=== PATIENT | female | born 1995 | race Caucasian/White ===

== ENCOUNTER 2019-05-28 13:20 | Outpatient (CLI) | payer MEDICAID ==
[2019-05-28 14:19] LABS: APPEARANCE,URINE CLEAR; BILIRUBIN,URINE NEGATIVE (NEGATIVE); COLOR,URINE YELLOW; GLUCOSE, URINE NEGATIVE (NEGATIVE); KETONES,URINE TRACE mg/dL (NEGATIVE); LEUKOCYTE ESTERASE,URINE NEGATIVE (NEGATIVE); NITRITE,URINE NEGATIVE (NEGATIVE); PROTEIN,URINE NEGATIVE (NEGATIVE); URINE SPECIFIC GRAVITY 1.017; UROBILINOGEN,URINE NEGATIVE mg/dL (<2.0)
--- NOTE | 2019-05-28 14:41 | Non Stress Test Report ---
Non Stress Test Datetime Report Generated by CPN: 05/28/2019 14:41 DEMOGRAPHIC EGA NST: 35.3 INDICATION Indication for Study: Decreased Movement; Ordered by Provider Indication for Study (NST) Other: labor check VITAL SIGNS Temperature - NST: 98.9 Pulse - NST: 83 RESP - NST: 15 NBPSYS NST: 139 NBPDIA NST: 71 MONITORING Monitor Explained: Monitor Explained; Test Explained; Patient Verbalized Understanding Time on Monitor: 05/28/2019 13:43 Time off Monitor: 05/28/2019 14:30 NST Duration: 47 NST INTERVENTIONS NST Interventions: PO Hydration Physician Notified NST: N Pavon CNM BABY A: [id number] BABY A Movement : Present Contraction Frequency : irregular FHR Baseline : 135 Accelerations : 15X15 Variability : Moderate 6-25bpm NST Review: Meets Criteria for Reactive NST NST Review and Verified By : Ninoska Camp RNC NST REPORT Report Trigger: Send Report
[2019-05-28 15:22] LABS: URINE AMPHETAMINES SCREEN NEGATIVE; URINE BARBITURATES SCREEN NEGATIVE; URINE BENZODIAZEPINES SCREEN NEGATIVE; URINE COCAINE SCREEN NEGATIVE; URINE MARIJUANA (THC) SCREEN NEGATIVE; URINE METHADONE SCREEN NEGATIVE; URINE PHENCYCLIDINE SCREEN NEGATIVE
== END 2019-05-28 14:38 | disposition home or self-care (01) ==
LOC: LC 13:20
PROVIDERS: ATTEND Obstetrics & Gynecology
PROC: 4A1HXCZ Monitoring of Products of Conception, Cardiac Rate, External Approach (ICD-10-PCS; principal; 2019-05-28)
DX: O26.893 Other specified pregnancy related conditions, third trimester (principal); E86.0 Dehydration; Z3A.35 35 weeks gestation of pregnancy
CPT/HCPCS: 59025; 80307; 81001

== ENCOUNTER 2019-06-05 14:26 | Outpatient (CLI) | payer MEDICAID ==
[2019-06-05] MEDS ORDERED: ACETAMINOPHEN 325 MG TABLET PO PRN (14:30)
[2019-06-05 15:11] LABS: APPEARANCE,URINE CLEAR; BILIRUBIN,URINE NEGATIVE (NEGATIVE); COLOR,URINE YELLOW; GLUCOSE, URINE NEGATIVE (NEGATIVE); KETONES,URINE NEGATIVE (NEGATIVE); LEUKOCYTE ESTERASE,URINE SMALL (NEGATIVE); NITRITE,URINE NEGATIVE (NEGATIVE); PROTEIN,URINE NEGATIVE (NEGATIVE); URINE SPECIFIC GRAVITY 1.009; UROBILINOGEN,URINE NEGATIVE mg/dL (<2.0)
[2019-06-05 15:13] LABS: HEMATOCRIT 36.3 % (36.0-47.0); HEMOGLOBIN 12.4 g/dL (12.0-15.5); MEAN CORPUSCULAR HEMOGLOBIN 30.2 pg (27.0-33.4); MEAN CORPUSCULAR HGB CONC 34.3 g/dL (32.0-36.0); MEAN CORPUSCULAR VOLUME 88 fl (80-97); PLATELET COUNT 281 10^3/uL (150-450); RED BLOOD COUNT 4.11 10^6/uL (3.72-5.28); RED CELL DISTRIBUTION WIDTH 13.5 % (11.5-14.0); WHITE BLOOD COUNT 15.2 10^3/uL (4.0-10.5)
[2019-06-05 15:28] LABS: URINE AMPHETAMINES SCREEN NEGATIVE; URINE BARBITURATES SCREEN NEGATIVE; URINE BENZODIAZEPINES SCREEN NEGATIVE; URINE COCAINE SCREEN NEGATIVE; URINE MARIJUANA (THC) SCREEN NEGATIVE; URINE METHADONE SCREEN NEGATIVE; URINE PHENCYCLIDINE SCREEN NEGATIVE
[2019-06-05 15:36] LABS: ALBUMIN 3.4 g/dL (3.5-5.0); ALKALINE PHOSPHATASE 158 U/L (38-126); ANION GAP 12 (5-19); ASPARTATE AMINO TRANSFERASE 18 U/L (14-36); BILIRUBIN,DIRECT 0.1 mg/dL (0.0-0.4); BILIRUBIN,TOTAL 0.3 mg/dL (0.2-1.3); BLOOD UREA NITROGEN 6 mg/dL (7-20); CALCIUM 9.4 mg/dL (8.4-10.2); CARBON DIOXIDE 21 mmol/L (22-30); CHLORIDE 103 mmol/L (98-107); GLUCOSE 108 mg/dL (75-110); POTASSIUM 4.1 mmol/L (3.6-5.0); TOTAL PROTEIN 6.1 g/dL (6.3-8.2); URIC ACID 5.3 mg/dL (2.5-6.2)
--- NOTE | 2019-06-05 15:41 | Non Stress Test Report ---
Non Stress Test Datetime Report Generated by CPN: 06/05/2019 15:41 DEMOGRAPHIC EGA NST: 36.4 INDICATION Indication for Study: Other - Please document "Reason for NST Other" in box below. Indication for Study (NST) Other: pre-e work up VITAL SIGNS Temperature - NST: 98.7 Pulse - NST: 78 RESP - NST: 15 NBPSYS NST: 127 NBPDIA NST: 67 MONITORING Monitor Explained: Monitor Explained; Test Explained; Patient Verbalized Understanding Time on Monitor: 06/05/2019 15:04 Time off Monitor: 06/05/2019 15:30 NST Duration: 26 NST INTERVENTIONS NST Interventions: PO Hydration Physician Notified NST: N Pavon CNM BABY A: [id number] BABY A Movement : Present Contraction Frequency : 0 FHR Baseline : 140 Accelerations : 15X15 Decelerations : None Variability : Moderate 6-25bpm NST Review: Meets Criteria for Reactive NST NST Review and Verified By : BL ROULUND, RN NST Results: Reactive NST COMMENTS NST Comments: CNM on unit reviewing FHT strip NST REPORT Report Trigger: Send Report
[2019-06-05 15:42] LABS: UR PRO/CREAT RATIO RESULT 0.2 mg/mg (0.0-0.2); URINE CREATININE 54.9 mg/dL (16-327); URINE PROTEIN 13.3 mg/dL (<12)
== END 2019-06-05 15:55 | disposition home or self-care (01) ==
LOC: LC 14:26
PROVIDERS: ATTEND Obstetrics & Gynecology
PROC: 4A1HXCZ Monitoring of Products of Conception, Cardiac Rate, External Approach (ICD-10-PCS; principal; 2019-06-05)
DX: O16.3 Unspecified maternal hypertension, third trimester (principal); Z3A.36 36 weeks gestation of pregnancy
CPT/HCPCS: 36415; 59025; 80053; 80307; 81005; 82570; 83615; 84156; 84550; 85027

== ENCOUNTER 2019-06-21 11:16 | Outpatient (CLI) | payer MEDICAID ==
--- NOTE | 2019-06-21 12:24 | Non Stress Test Report ---
Non Stress Test Datetime Report Generated by CPN: 06/21/2019 12:24 DEMOGRAPHIC EGA NST: 38.6 VITAL SIGNS Temperature - NST: 98.4 Pulse - NST: 76 RESP - NST: 14 NBPSYS NST: 118 NBPDIA NST: 58 MONITORING Monitor Explained: Monitor Explained; Test Explained; Patient Verbalized Understanding Time on Monitor: 06/21/2019 11:28 Time off Monitor: 06/21/2019 11:58 NST Duration: 30 NST INTERVENTIONS NST Interventions: PO Hydration Physician Notified NST: P hawkins CNM BABY A: [id number] BABY A Movement : Present Contraction Frequency : 0 FHR Baseline : 140 Accelerations : 15X15 Decelerations : None Variability : Moderate 6-25bpm NST Review: Meets Criteria for Reactive NST NST Review and Verified By : Carlos Camp RNC NST Results: Reactive NST REPORT Report Trigger: Send Report
== END 2019-06-21 12:00 | disposition home or self-care (01) ==
LOC: LC 11:16
PROVIDERS: ATTEND Obstetrics & Gynecology Gynecology
PROC: 4A1HXCZ Monitoring of Products of Conception, Cardiac Rate, External Approach (ICD-10-PCS; principal; 2019-06-21)
DX: O13.3 Gestational [pregnancy-induced] hypertension without significant proteinuria, third trimester (principal); Z3A.38 38 weeks gestation of pregnancy
CPT/HCPCS: 59025

== ENCOUNTER 2019-06-22 15:13 | Inpatient (IN) | payer MEDICAID ==
[2019-06-22] MEDS ORDERED: RINGERS SOLUTION,LACTATED 300 ML IV ONE (15:53)
[2019-06-22] MEDS ORDERED: OXYTOCIN/NORMAL SALINE 20 UNIT/1,000 ML RTUINJ IV PRN (15:53)
[2019-06-22] MEDS ORDERED: VANCOMYCIN HCL 1,000 MG in DEXTROSE 5%-WATER 250 ML IV SCH (16:00)
--- NOTE | 2019-06-22 16:02 | Admission Physical ---
Datetime Report Generated by CPN: 06/22/2019 16:01 CURRENT ADMISSION Chief Complaint: Scheduled Induction of Labor Indication for Induction: Gestational HTN Admit Impression : Term, Intrauterine ; Induction of Labor Admit Plan: Admit to Unit; Initiate Labor Induction Protocol ALLERGIES Medication Allergies: Yes Medication Allergies: Penicillins/Anaphylaxis (06/22/2019) Latex: No Latex Allergies OBSTETRICAL HISTORY EDC: 06/29/2019 00:00 : 2 Para: 0 Term: 0 : 0 SAB: 1 IAB: 0 Ectopic: 0 Livin Cesareans: 0 VBACs: 0 Multiple Births: 0 Gestational Diabetes: No Rh Sensitization: No Incompetent Cervix: No LEEANN: No Infertility: No ART Treatment: No Uterine Anomaly: No IUGR: No Hx Previous C/S: No Macrosomia: No Hx Loss/Stillborn: No PIH: Yes Hx : No Placenta Previa/Abruption: No Depression/PP Depression: No PTL/PROM: No Post Hemorrhage: No Current Procedures: Ultrasound; NST Obstetrical History Comments: G1- SAB G2- current, transfer to [facility] at 27 weeks, GHTN SEE RECORDS Alcohol: No Marijuana : No Cocaine: No Other Illicit Drugs: No Cigarettes: Never Smoker. [id number] MEDICAL HISTORY Diabetes: No Blood Transfusion: No Pulmonary Disease (Asthma, TB): No Breast Disease: No Hypertension: No Orthodontic Lab Technician Surgery: No Heart Disease: No Hosp/Surgery: Yes Autoimmune Disorder: No Anesthetic Complications: No Kidney Disease: No Abnormal Pap Smear: Yes Neuro/Epilepsy: No Psychiatric Disorders: No Other Medical Diseases: No Hepatitis/Liver Disease: No Significant Family History: No Varicosities/Phlebitis: No Trauma/Violence : No Thyroid Dysfunction: No Medical History Comments: tonsillectomy _ adnoid- 2000, ASCUS+ HPV with colpo 02/16 INFECTIOUS HISTORY Gonorrhea: No Genital Herpes: No Chlamydia: No Tuberculosis: No Syphilis: No Hepatitis: No HIV/AIDS Exposure: No Rash or Viral Illness: No HPV: Yes Infectious History Comments: ASCUS+ HPV with colpo 02/16- repeat PHYSICAL EXAM General: Normal HEENT: Normal Neurologic: Normal Thyroid: Normal Heart: Normal Lungs: Normal Breast: Normal Back: Normal Abdomen: Normal Genitourinary Exam: Normal Extremities: Normal DTRs: Normal Pelvic Type: Adequate Vital Signs: Reviewed; Within Normal Limits FETUS A EGA: 39.0 Monitoring: External US FHR- Baseline: 150 Variability: Moderate 6-25bpm Accelerations: 15X15 Decelerations: None FHR Category: Category I Estimated Weight (gm): 3500 Presentation: Vertex PLANS FOR LABOR AND DELIVERY Labor and Delivery: Plan Pain Management: Natural Feeding Preference: Breast Circumcision: Yes INFORMED CONSENT Signature: with User ID: Glenn
[2019-06-22] MEDS ORDERED: MISOPROSTOL 0.2 MG TABLET ONE (16:08)
[2019-06-22] MEDS ORDERED: OXYTOCIN 10 UNIT/ML VIAL ONE (16:08)
[2019-06-22] MEDS ORDERED: OXYTOCIN/NORMAL SALINE 20 UNIT/1,000 ML RTUINJ ONE (16:09)
[2019-06-22] MEDS ORDERED: ERYTHROMYCIN INJ 500 MG VIAL IV ONE ×2 (16:09→23:07)
[2019-06-22] MEDS ORDERED: LIDOCAINE 1% INJ-PF (10 MG/ML) 30 ML SDV ONE (16:09)
[2019-06-22] MEDS: RINGERS SOLUTION,LACTATED 1,000 ML IV PRN ×2 (16:30→21:09)
[2019-06-22 16:59] LABS: URINE AMPHETAMINES SCREEN NEGATIVE; URINE BARBITURATES SCREEN NEGATIVE; URINE BENZODIAZEPINES SCREEN NEGATIVE; URINE COCAINE SCREEN NEGATIVE; URINE MARIJUANA (THC) SCREEN NEGATIVE; URINE METHADONE SCREEN NEGATIVE; URINE PHENCYCLIDINE SCREEN NEGATIVE
[2019-06-22 17:52] LABS: ABSOLUTE BASOPHILS # (AUTO) 0.1 10^3/uL (0.0-0.2); ABSOLUTE EOSINOPHILS # (AUTO) 0.1 10^3/uL (0.0-0.6); ABSOLUTE LYMPHOCYTES (AUTO) 2.3 10^3/uL (0.5-4.7); ABSOLUTE NEUT (AUTO) 13.1 10^3/uL (1.7-8.2); BASOPHILS % (AUTO) 0.4 % (0-2); EOSINOPHILS % (AUTO) 0.6 % (0-6); HEMATOCRIT 37.1 % (36.0-47.0); HEMOGLOBIN 12.7 g/dL (12.0-15.5); MEAN CORPUSCULAR HEMOGLOBIN 30.1 pg (27.0-33.4); MEAN CORPUSCULAR HGB CONC 34.3 g/dL (32.0-36.0); MEAN CORPUSCULAR VOLUME 88 fl (80-97); MONOCYTES % (AUTO) 5.9 % (3-13); PLATELET COUNT 291 10^3/uL (150-450); RED BLOOD COUNT 4.23 10^6/uL (3.72-5.28); RED CELL DISTRIBUTION WIDTH 13.7 % (11.5-14.0); SEGMENTED NEUTROPHILS % (AUTO) 79.1 % (42-78); TOTAL CELLS COUNTED % (AUTO) 100 %; WHITE BLOOD COUNT 16.5 10^3/uL (4.0-10.5)
[2019-06-22] MEDS ORDERED: ERYTHROMYCIN LACTOBIONATE 500 MG in NORMAL SALINE 100 ML IV SCH (18:00)
[2019-06-22 19:26] LABS: APPEARANCE,URINE SLIGHTLY-CLOUDY; BILIRUBIN,URINE NEGATIVE (NEGATIVE); COLOR,URINE YELLOW; GLUCOSE, URINE NEGATIVE (NEGATIVE); KETONES,URINE NEGATIVE (NEGATIVE); LEUKOCYTE ESTERASE,URINE SMALL (NEGATIVE); NITRITE,URINE NEGATIVE (NEGATIVE); PROTEIN,URINE NEGATIVE (NEGATIVE); UROBILINOGEN,URINE NEGATIVE mg/dL (<2.0)
[2019-06-22] MEDS: ERYTHROMYCIN INJ 500 MG VIAL IV SCH (23:17)
[2019-06-23] MEDS ORDERED: PROMETHAZINE HCL INJ 25 MG/1 ML VIAL IV ONE (00:40)
[2019-06-23] MEDS ORDERED: NALBUPHINE HCL INJ 10 MG/1 ML AMPULE INJ ONE (00:40)
[2019-06-23] MEDS ORDERED: NALBUPHINE HCL INJ 10 MG/1 ML AMPULE ONE (00:51)
[2019-06-23] MEDS ORDERED: PROMETHAZINE HCL INJ 25 MG/1 ML VIAL ONE (00:51)
[2019-06-23] MEDS ORDERED: PHENYLEPHRINE HCL INJ/PF 10 MG/1 ML SDV ONE (02:48)
[2019-06-23] MEDS ORDERED: FENTANYL/BUPIVACAINE/NS/PF 300 MCG/150 ML RTUINJ EPI ONE (02:49)
[2019-06-23] MEDS ORDERED: FENTANYL CITRATE INJ/PF 100 MCG/2 ML AMPUL ONE ×3 (02:49→08:14)
[2019-06-23] MEDS ORDERED: EPHEDRINE SULFATE INJ 50 MG/1 ML AMPULE ONE (02:49)
[2019-06-23] MEDS ORDERED: BUPIVACAINE HCL 0.25 % INJ/PF (2.5 MG/1 ML) 30 ML VIAL ONE (02:49)
[2019-06-23 02:50] LABS: ABSOLUTE EOSINOPHILS # (AUTO) 0.2 10^3/uL (0.0-0.6); ABSOLUTE LYMPHOCYTES (AUTO) 2.5 10^3/uL (0.5-4.7); ABSOLUTE NEUT (AUTO) 10.6 10^3/uL (1.7-8.2); BASOPHILS % (AUTO) 0.3 % (0-2); EOSINOPHILS % (AUTO) 1.1 % (0-6); HEMATOCRIT 36.8 % (36.0-47.0); HEMOGLOBIN 12.6 g/dL (12.0-15.5); LYMPHOCYTES % (AUTO) 17.6 % (13-45); MEAN CORPUSCULAR HEMOGLOBIN 30.1 pg (27.0-33.4); MEAN CORPUSCULAR HGB CONC 34.1 g/dL (32.0-36.0); MEAN CORPUSCULAR VOLUME 88 fl (80-97); MONOCYTES % (AUTO) 7.3 % (3-13); PLATELET COUNT 251 10^3/uL (150-450); RED BLOOD COUNT 4.18 10^6/uL (3.72-5.28); RED CELL DISTRIBUTION WIDTH 13.8 % (11.5-14.0); SEGMENTED NEUTROPHILS % (AUTO) 73.7 % (42-78); TOTAL CELLS COUNTED % (AUTO) 100 %; WHITE BLOOD COUNT 14.4 10^3/uL (4.0-10.5)
[2019-06-23 03:06] LABS: ALBUMIN 3.2 g/dL (3.5-5.0); ALKALINE PHOSPHATASE 186 U/L (38-126); ANION GAP 7 (5-19); ASPARTATE AMINO TRANSFERASE 20 U/L (14-36); BILIRUBIN,DIRECT 0.1 mg/dL (0.0-0.4); BILIRUBIN,TOTAL 0.3 mg/dL (0.2-1.3); BLOOD UREA NITROGEN 8 mg/dL (7-20); CALCIUM 9.1 mg/dL (8.4-10.2); CARBON DIOXIDE 22 mmol/L (22-30); CHLORIDE 107 mmol/L (98-107); GLUCOSE 75 mg/dL (75-110); POTASSIUM 3.9 mmol/L (3.6-5.0); TOTAL PROTEIN 5.7 g/dL (6.3-8.2); URIC ACID 6.3 mg/dL (2.5-6.2)
[2019-06-23] MEDS: RINGERS SOLUTION,LACTATED 1,000 ML IV PRN (04:23)
[2019-06-23] MEDS ORDERED: ERYTHROMYCIN INJ 500 MG VIAL IV ONE (05:01)
[2019-06-23] MEDS: ERYTHROMYCIN INJ 500 MG VIAL IV SCH ×2 (05:07→09:56)
[2019-06-23] MEDS ORDERED: LIDOCAINE 2% INJ-PF (20 MG/ML) 10 ML AMPUL ONE ×2 (07:20→08:06)
[2019-06-23] MEDS ORDERED: KETOROLAC TROMETHAMINE INJ/PF 30 MG/1 ML SDV ONE (07:20)
[2019-06-23] MEDS ORDERED: ACETAMINOPHEN 1,000 MG/100 ML RTUPB IV ONE (07:20)
[2019-06-23] MEDS ORDERED: OXYTOCIN 10 UNIT/ML VIAL ONE (07:20)
[2019-06-23] MEDS ORDERED: ONDANSETRON HCL INJ/PF 4 MG/2 ML SDV ONE ×3 (07:21→14:02)
[2019-06-23] MEDS ORDERED: AZITHROMYCIN INJ 500 MG VIAL IV ONE (07:23)
[2019-06-23] MEDS ORDERED: CITRIC ACID/SODIUM CITRATE ORAL SOLN 15 ML UDCUP ONE (07:23)
[2019-06-23] MEDS ORDERED: RINGERS SOLUTION,LACTATED 1,000 ML IV PRN (07:52)
[2019-06-23] MEDS ORDERED: SIMETHICONE 80 MG TAB.CHEW PO PRN (07:52)
[2019-06-23] MEDS ORDERED: PROMETHAZINE HCL INJ 25 MG/1 ML VIAL IV PRN (07:52)
[2019-06-23] MEDS ORDERED: ACETAMINOPHEN 325 MG TABLET PO PRN (07:52)
[2019-06-23] MEDS ORDERED: OXYCODONE-ACETAMINOPHEN 5-325 MG TABLET PO PRN (07:52)
[2019-06-23] MEDS ORDERED: ACETAMINOPHEN 1,000 MG/100 ML RTUPB IV PRN (07:52)
[2019-06-23] MEDS ORDERED: OXYTOCIN/NORMAL SALINE 20 UNIT/1,000 ML RTUINJ IV PRN (07:52)
[2019-06-23] MEDS ORDERED: DIPH/PERTUSS(ACELL)/TETANUS VAC/PF 0.5 ML SYR (>=10YO) IM PRN (07:52)
[2019-06-23] MEDS ORDERED: MEASLES,MUMPS&RUBELLA VACC/PF 0.5 ML VIAL SUBCUT PRN (07:52)
--- NOTE | 2019-06-23 08:48 | Operative Report ---
Operative Report DATE OF SURGERY: 06/23/19 PREOPERATIVE DIAGNOSIS: IUP @ 39 08/07, GHTN, NRFHTs POSTOPERATIVE DIAGNOSIS: Same OPERATION: Primary low transverse hysterotomy section SURGEON: JODY MCKEON ANESTHESIA: Epidural TISSUE REMOVED OR ALTERED: Placenta COMPLICATIONS: None ESTIMATED BLOOD LOSS: 750 cc INTRAOPERATIVE FINDINGS: Male infant cephalic presentation with Apgars of 8 and 9 short umbilical cord umbilical varices PROCEDURE: PROCEDURE IN DETAIL: The patient was taken to the operating room, prepared and draped in a normal sterile fashion in a supine position with a leftward tilt. A transverse skin incision was made with a scalpel and carried through to the underlying layer of fascia with the same scalpel. The fascia was excised in the midline and extended laterally with Omkar. The fascia was then dissected from the rectus muscle sharply with Omkar and the rectus muscle was divided and the peritoneal cavity was entered sharply with the same Metzenbaum. With good visualization of the bladder and the uterus the bladder blade was inserted. The hysterotomy was nicked with a scalpel and extended laterally with surgeon finger fraction. The was then delivered atraumatically. The nose and mouth were suctioned with a suction bulb, the cord was clamped and cut and handed off to awaiting pediatricians. Cord blood was collected. The placenta was removed manually. The uterus was exteriorized and cleared of clots and debris. The hysterotomy was closed with 0 Monocryl in a running, locked fashion. A second layer of the same suture was used to imbricate to ensure hemostasis. The uterus was returned to the abdomen and peritoneal cavity was cleared of clots and debris. The rectus muscle and peritoneum were repaired with mattress stitch of 2-0 Chromic. The fascia was closed with 0-Vicryl. The subcutaneous layer was closed with plain catgut and the skin was closed with 4-0 Vicryl. The patient tolerated the procedure well. Sponge, lap, and needle counts correct x2 and the patient was taken to recovery in stable condition.
[2019-06-23] MEDS ORDERED: OXYTOCIN/NORMAL SALINE 20 UNIT/1,000 ML RTUINJ ONE (09:20)
[2019-06-23] MEDS ORDERED: MORPHINE SULFATE 10 MG/ML INJ ONE ×2 (09:20→10:03)
[2019-06-23] MEDS: MORPHINE SULFATE 10 MG/ML INJ IV PRN ×4 (09:26→20:15)
--- NOTE | 2019-06-23 11:55 | Delivery Summary ---
Del Sum A-C Datetime Report Generated by CPN: 06/23/2019 11:55 DELIVERY PERSONNEL DELIVERY PERSONNEL: [id number] Delivery Doctor:: Anuradha Blue MD Anesthesiologist:: Imelda Santiago MD OVEN BAKER:: Serena Jack CRNA Labor and Delivery Nurse:: Nellie Carrera RNcertified court/medical interpreter Nurse:: Josie Wilde RN Dietitian Teacher:: Nellie Carrera RN Neonatal Nurse Practitioner:: RADHA Mccurdy Nursery Nurse:: Ashley Lu RN Central Office Equipment Engineer/GOLD PLATER: Leola Frausto CST Central Office Equipment Engineer/GOLD PLATER: Yenifer Holden ST MATERNAL INFORMATION Delivery Anesthesia: Epidural Medications After Delivery: Pitocin Drip 20 Units/1000ml NSS Meds After Delivery Comment: Pitocin 20 units in 1000mL NS Maternal Complications: Other Complication Details: GHTN LABOR SUMMARY EDC: 06/29/2019 00:00 No. Babies in Womb: 1 Attempted: No Labor Anesthesia: Epidural LABOR INFORMATION Reason for Induction: Gestational Hypertension Oxytocin: Induction Group B Beta Strep: positive Antibiotics # of Doses: 3 Antibiotics Time of Last Dose: 0509 Name of Antibiotic Given: erythromycin Steroids Given: None Reason Steroids Not Administered: Not Applicable MEMBRANES Membranes Rupture Method: Artificial Rupture of Membranes: 06/23/2019 07:08 Length of Rupture (hr): 1.17 Amniotic Fluid Color: Bloody Amniotic Fluid Amount: Small Amniotic Fluid Odor: Normal STAGES OF LABOR Stage 3 hr: 0 Stage 3 min: 1 VAGINAL DELIVERY Episiotomy: None Laceration #1: None Laceration Extension #1: N/A Laceration Repair: Not Applicable Sponge Count Correct: N/A Sharps Count Correct: N/A CSECTION DELIVERY Primary Indication: Nonreassuring Status Secondary Indication: N/A CSection Urgency: Non-Scheduled CSection Incidence: Primary Labor: Labor Elective: Nonelective CSection Incision: Lower Uterine Transverse BABY A INFORMATION Infant Delivery Date/Time: 06/23/2019 08:18 Method of Delivery: Born in Route : No : N/A Forceps: N/A Vacuum Extraction: N/A Shoulder Dystocia : No PRESENTATION/POSITION BABY A Presentation: Cephalic Cephalic Presentation: Vertex Breech Presentation: N/A PLACENTA INFORMATION BABY A Placenta Delivery Time : 06/23/2019 08:19 Placenta Method of Delivery: Manual Removal Placenta Status: Delivered SCORES BABY A Heart Rate 1 min: >100 bpm Resp Effort 1 min: Good Cry Reflex Irritability 1 min: Cough or Sneeze or Pulls Away Muscle Tone 1 min: Active Motion Color 1 min: Blue/Pale Resuscitation Effort 1 min: Tactile Stimulation SCORE 1 MIN: 8 Heart Rate 5 min: >100 bpm Resp Effort 5 min: Good Cry Reflex Irritability 5 min: Cough or Sneeze or Pulls Away Muscle Tone 5 min: Active Motion Color 5 min: Body [place], Extremities Blue Resuscitation Effort 5 min: N/A SCORE 5 MIN: 9 INFANT INFORMATION BABY A Gestational Age at Delivery: 39.1 Gestational Status: Full Term- 39- 40.6 Weeks Outcome : Liveborn Infant Condition : Stable Infant Sex: Male IDENTIFICATION BABY A Infant Verification Date/Time: 06/23/2019 08:19 ID Band Number: [id number] Mother's Name Verified: Yes RN Verifying Infant: B Baidy RN Additional Verifying Personnel: H Andry RN WEIGHT/LENGTH BABY A Infant Birthweight (gm): 3505 Infant Weight (lb): 7 Weight (oz): 12 Length (in): 20.75 Infant Length (cm): 52.71 CORD INFORMATION BABY A No. Cord Vessels: 3 Nuchal Cord : N/A Cord Blood Taken: Yes-For Eval (Mom's Blood Type - or O+) Infant Suction: Mouth ASSESSMENT BABY A Physical Findings at Delivery: Within Normal Limits; Molding of the Head Infant Respirations: Appears Normal Skin to Skin: Yes Skin to Skin Time (min): 5 Credit And Collections Representative/ALS Called : No Infant Care By: Gay Lu RN/S RADHA Agrawal Transferred To: [facility] BABY B INFORMATION : N/A
[2019-06-23] MEDS ORDERED: IBUPROFEN 800 MG TABLET PO SCH (12:00)
[2019-06-23] MEDS: DOCUSATE SODIUM 100 MG CAPSULE PO SCH ×2 (12:30→18:59)
[2019-06-23] MEDS: PRENATAL VITAMIN W DHA CAPSULE PO SCH (12:30)
[2019-06-23] MEDS: KETOROLAC TROMETHAMINE INJ/PF 30 MG/1 ML SDV IV SCH ×2 (13:48→21:28)
[2019-06-23] MEDS ORDERED: METOCLOPRAMIDE HCL INJ/PF 10 MG/2 ML SDV ONE (14:02)
[2019-06-23] MEDS: OXYCODONE-ACETAMINOPHEN 5-325 MG TABLET PO PRN (22:54)
[2019-06-24] MEDS: OXYCODONE-ACETAMINOPHEN 5-325 MG TABLET PO PRN ×5 (03:15→21:55)
[2019-06-24] MEDS: KETOROLAC TROMETHAMINE INJ/PF 30 MG/1 ML SDV IV SCH (05:09)
[2019-06-24 06:19] LABS: HEMATOCRIT 32.5 % (36.0-47.0); HEMOGLOBIN 11.1 g/dL (12.0-15.5); MEAN CORPUSCULAR HEMOGLOBIN 30.2 pg (27.0-33.4); MEAN CORPUSCULAR HGB CONC 34.1 g/dL (32.0-36.0); MEAN CORPUSCULAR VOLUME 89 fl (80-97); PLATELET COUNT 208 10^3/uL (150-450); RED BLOOD COUNT 3.66 10^6/uL (3.72-5.28); RED CELL DISTRIBUTION WIDTH 13.7 % (11.5-14.0); WHITE BLOOD COUNT 13.3 10^3/uL (4.0-10.5)
--- NOTE | 2019-06-24 09:08 | PDOC PROGRESS REPORT ---
Subjective-OB Progress Note for:: 06/24/19 Subjective: Doing well, feels alot better, hsb in room, baby doing well, , ambulating, voiding, scant bleeding Physical Exam (OB) Vital Signs: Temp Pulse Resp BP Pulse Ox 98.3 F 64 18 141/62 H 99 06/24/19 08:00 06/24/19 08:00 06/24/19 08:00 06/24/19 08:00 06/24/19 08:00 Intake & Output 06/23/19 06/24/19 06/25/19 06:59 06:59 06:59 Intake Total 1485 1800 Output Total 3350 Balance 1485 -1550 Weight 124.6 kg - PIH/Pre-Eclampsia DTR's: 1 + Clonus: Negative Headache: Absent Epigastric Pain: No Visual Changes: No - Dressing Removed: No - Opsite, dry drainage outlined Incision: Draining, Well Approximated - Lochia Lochia Amount: Scant < 10 ml Lochia Color: Rubra/Red - Abdomen Description: Tender, Soft, Round Hernia Present: No Fundal Description: Firm, Midline Fundal Height: u/u - u/2 Objective-Diagnostic Laboratory: 06/24/19 05:36 06/23/19 02:37 06/24/19 05:36 WBC 13.3 H RBC 3.66 L Hgb 11.1 L Hct 32.5 L MCV 89 MCH 30.2 MCHC 34.1 RDW 13.7 Plt Count 208 Assessment and Plan(PN) - Assessment and Plan (1) GBS (group B Streptococcus carrier), +RV culture, currently Is this a current diagnosis for this admission?: Yes (2) Non-reassuring electronic monitoring tracing Is this a current diagnosis for this admission?: Yes (3) S/P primary low transverse Is this a current diagnosis for this admission?: Yes - Time Spent with Patient Time with patient: Less than 15 minutes Medications reviewed and adjusted accordingly: Yes - Disposition Anticipated Discharge: Home Within: within 24 hours
[2019-06-24] MEDS: DOCUSATE SODIUM 100 MG CAPSULE PO SCH ×2 (09:48→17:22)
[2019-06-24] MEDS: PRENATAL VITAMIN W DHA CAPSULE PO SCH (09:48)
[2019-06-24] MEDS: IBUPROFEN 800 MG TABLET PO SCH ×3 (11:40→23:31)
[2019-06-24] MEDS: DIPHENHYDRAMINE HCL 50 MG CAPSULE PO PRN (23:31)
[2019-06-25] MEDS: OXYCODONE-ACETAMINOPHEN 5-325 MG TABLET PO PRN ×2 (01:46→05:45)
[2019-06-25] MEDS: IBUPROFEN 800 MG TABLET PO SCH ×2 (05:44→11:57)
[2019-06-25] MEDS: DIPHENHYDRAMINE HCL 50 MG CAPSULE PO PRN (07:40)
[2019-06-25 08:53] VITALS: BP 126/62
[2019-06-25] MEDS: PRENATAL VITAMIN W DHA CAPSULE PO SCH (09:52)
[2019-06-25] MEDS: DOCUSATE SODIUM 100 MG CAPSULE PO SCH (09:52)
--- NOTE | 2019-06-25 10:10 | PDOC DISCHARGE SUMMARY ---
Impression - Admit/DC Date/PCP Admission Date/Primary Care Provider: 06/22/19 15:13 JEN MARSH MD Discharge Date: 06/25/19 - Discharge Diagnosis (1) GBS (group B Streptococcus carrier), +RV culture, currently Is this a current diagnosis for this admission?: Yes (2) Non-reassuring electronic monitoring tracing Is this a current diagnosis for this admission?: Yes (3) S/P primary low transverse Is this a current diagnosis for this admission?: Yes - Additional Information Resuscitation Status: Full Code Discharge Diet: Regular Discharge Activity: Balance Activity w/Rest, No Lifting Over 10 Pounds, No Lift ing/Push/Pulling, Pelvic Rest, No tub bath Referrals: JEN MARSH MD [Primary Care Provider] - Prescriptions: Oxycodone HCl/Acetaminophen [Percocet 5-325 mg Tablet] 1 tab PO Q4HP PRN #30 tablet PRN Reason: Ibuprofen [Motrin 800 mg Tablet] 800 mg PO Q8HP PRN #60 tablet PRN Reason: Docusate Sodium [Colace 100 mg Capsule] 100 mg PO BID #60 capsule Home Medications: Vits96/Iron Fum/Folic [ Tablet] 1 tab PO DAILY 05/28/19 Docusate Sodium [Colace 100 mg Capsule] 100 mg PO BID #60 capsule 06/25/19 Ibuprofen [Motrin 800 mg Tablet] 800 mg PO Q8HP PRN #60 tablet 06/25/19 Oxycodone HCl/Acetaminophen [Percocet 5-325 mg Tablet] 1 tab PO Q4HP PRN #30 tablet 06/25/19 Results Laboratory Results: WBC 13.3 10^3/uL (4.0-10.5) H 06/24/19 05:36 RBC 3.66 10^6/uL (3.72-5.28) L 06/24/19 05:36 Hgb 11.1 g/dL (12.0-15.5) L 06/24/19 05:36 Hct 32.5 % (36.0-47.0) L 06/24/19 05:36 MCV 89 fl (80-97) 06/24/19 05:36 MCH 30.2 pg (27.0-33.4) 06/24/19 05:36 MCHC 34.1 g/dL (32.0-36.0) 06/24/19 05:36 RDW 13.7 % (11.5-14.0) 06/24/19 05:36 Plt Count 208 10^3/uL (150-450) 06/24/19 05:36 Lymph % (Auto) 17.6 % (13-45) 06/23/19 02:37 Eddy % (Auto) 7.3 % (3-13) 06/23/19 02:37 Eos % (Auto) 1.1 % (0-6) 06/23/19 02:37 Baso % (Auto) 0.3 % (0-2) 06/23/19 02:37 Absolute Neuts (auto) 10.6 10^3/uL (1.7-8.2) H 06/23/19 02:37 Absolute Lymphs (auto) 2.5 10^3/uL (0.5-4.7) 06/23/19 02:37 Absolute Monos (auto) 1.0 10^3/uL (0.1-1.4) 06/23/19 02:37 Absolute Eos (auto) 0.2 10^3/uL (0.0-0.6) 06/23/19 02:37 Absolute Basos (auto) 0.0 10^3/uL (0.0-0.2) 06/23/19 02:37 Seg Neutrophils % 73.7 % (42-78) 06/23/19 02:37 Sodium 135.9 mmol/L (137-145) L 06/23/19 02:37 Potassium 3.9 mmol/L (3.6-5.0) 06/23/19 02:37 Chloride 107 mmol/L (98-107) 06/23/19 02:37 Carbon Dioxide 22 mmol/L (22-30) 06/23/19 02:37 Anion Gap 7 (5-19) 06/23/19 02:37 BUN 8 mg/dL (7-20) 06/23/19 02:37 Creatinine 0.60 mg/dL (0.52-1.25) 06/23/19 02:37 Est GFR ( Amer) > 60 (>60) 06/23/19 02:37 Est GFR (MDRD) Non-Af > 60 (>60) 06/23/19 02:37 Glucose 75 mg/dL (75-110) 06/23/19 02:37 Uric Acid 6.3 mg/dL (2.5-6.2) H 06/23/19 02:37 Calcium 9.1 mg/dL (8.4-10.2) 06/23/19 02:37 Total Bilirubin 0.3 mg/dL (0.2-1.3) 06/23/19 02:37 Direct Bilirubin 0.1 mg/dL (0.0-0.4) 06/23/19 02:37 Neonat Total Bilirubin Not Reportable 06/23/19 02:37 Neonat Direct Bilirubin Not Reportable 06/23/19 02:37 Neonat Indirect Bili Not Reportable 06/23/19 02:37 AST 20 U/L (14-36) 06/23/19 02:37 ALT 13 U/L (<35) 06/23/19 02:37 Alkaline Phosphatase 186 U/L (38-126) H 06/23/19 02:37 Lactate Dehydrogenase 144 U/L (120-246) 06/23/19 02:37 Total Protein 5.7 g/dL (6.3-8.2) L 06/23/19 02:37 Albumin 3.2 g/dL (3.5-5.0) L 06/23/19 02:37 Urine Color YELLOW 06/22/19 15:40 Urine Appearance SLIGHTLY-CLOUDY 06/22/19 15:40 Urine pH 6.0 (5.0-9.0) 06/22/19 15:40 Ur Specific [place] 1.010 06/22/19 15:40 Urine Protein NEGATIVE mg/dL (NEGATIVE) 06/22/19 15:40 Urine Glucose (UA) NEGATIVE mg/dL (NEGATIVE) 06/22/19 15:40 Urine Ketones NEGATIVE mg/dL (NEGATIVE) 06/22/19 15:40 Urine Blood NEGATIVE (NEGATIVE) 06/22/19 15:40 Urine Nitrite NEGATIVE (NEGATIVE) 06/22/19 15:40 Urine Bilirubin NEGATIVE (NEGATIVE) 06/22/19 15:40 Urine Urobilinogen NEGATIVE mg/dL (<2.0) 06/22/19 15:40 Ur Leukocyte Esterase SMALL (NEGATIVE) H 06/22/19 15:40 Urine Ascorbic Acid NEGATIVE (NEGATIVE) 06/22/19 15:40 Urine Opiates Screen NEGATIVE 06/22/19 15:40 Urine Methadone Screen NEGATIVE 06/22/19 15:40 Ur Barbiturates Screen NEGATIVE 06/22/19 15:40 Ur Phencyclidine Scrn NEGATIVE 06/22/19 15:40 Ur Amphetamines Screen NEGATIVE 06/22/19 15:40 U Benzodiazepines Scrn NEGATIVE 06/22/19 15:40 Urine Cocaine Screen NEGATIVE 06/22/19 15:40 U Marijuana (THC) Screen NEGATIVE 06/22/19 15:40 RPR NONREACTIVE (NONREACTIVE) 06/22/19 17:35 Blood Type O POSITIVE 06/22/19 17:35 Antibody Screen NEGATIVE 06/22/19 17:35
== END 2019-06-25 13:05 | disposition home or self-care (01) | DRG 788 ==
LOC: LR 15:13 → 2N 06-23 11:03
PROVIDERS: ADMIT Obstetrics & Gynecology; ATTEND Obstetrics & Gynecology
PROC: 10D00Z1 Extraction of Products of Conception, Low, Open Approach (ICD-10-PCS; principal; 2019-06-23)
PROC: 3E033VJ Introduction of Other Hormone into Peripheral Vein, Percutaneous Approach (ICD-10-PCS; 2019-06-23)
PROC: 10907ZC Drainage of Amniotic Fluid, Therapeutic from Products of Conception, Via Natural or Artificial Opening (ICD-10-PCS; 2019-06-23)
DX: O13.4 Gestational [pregnancy-induced] hypertension without significant proteinuria, complicating childbirth (principal); O99.824 Streptococcus B carrier state complicating childbirth; O36.8330 Maternal care for abnormalities of the fetal heart rate or rhythm, third trimester, not applicable or unspecified; Z3A.39 39 weeks gestation of pregnancy; Z37.0 Single live birth; Z88.0 Allergy status to penicillin
CPT/HCPCS: 1961; 36415; 80053; 80307; 81005; 83615; 84550; 85025; 85027; 86592; 86850; 86900; 86901; 88307; 94760; 94799; J0131; J0456; J1364; J1885; J2270; J2300; J2370; J2405; J2550; J2590; J2765; J3010; J3490